=== PATIENT | female | born 1965 | race Caucasian/White ===

== ENCOUNTER → 2017-05-28 | Outpatient (CLI) | payer BC ==
[~2017-05-28] MED LIST: ALEVE 220MG220 MG PO; ESTRATEST H S PO; ZYRTEC10 MG PO
== END ==
LOC: MC.RAD 13:16
DX: Z12.31 Encounter for screening mammogram for malignant neoplasm of breast (principal)

== ENCOUNTER → 2018-06-24 | Outpatient (CLI) | payer BC | LOC: MC.RAD 07:40 | DX: Z12.31 Encounter for screening mammogram for malignant neoplasm of breast (principal) ==

== ENCOUNTER → 2019-07-08 | Outpatient (CLI) | payer BC | LOC: MC.RAD 08:15 | DX: Z12.31 Encounter for screening mammogram for malignant neoplasm of breast (principal) ==

== ENCOUNTER → 2020-11-28 | Outpatient (CLI) | payer BC | LOC: MC.RAD 14:02 | DX: Z12.31 Encounter for screening mammogram for malignant neoplasm of breast (principal) ==

== ENCOUNTER → 2022-01-29 | Outpatient (CLI) | payer BC | LOC: MC.RAD 10:52 | DX: Z12.31 Encounter for screening mammogram for malignant neoplasm of breast (principal) ==

== ENCOUNTER → 2023-10-30 | Outpatient (CLI) | payer BC | LOC: MC.RAD 09-19 07:45 | DX: Z12.31 Encounter for screening mammogram for malignant neoplasm of breast (principal) ==